=== PATIENT | male | born 1970 | race Caucasian/White ===

== ENCOUNTER 2018-07-14 09:39 | Emergency (ER) | payer BC ==
[2018-07-14 09:54] VITALS: BP 147/101
--- NOTE | 2018-07-14 09:54 | UC ---
Cardiac HPI - HPI Summary HPI Summary: Patient is of 48 year old gentleman , who present today to the urgent care with chest pain or palpitations since morning today. he reports that he had some had cold-like symptoms 3 days ago, which got slightly better but was noticing heaviness in his chest which got worse today morning. Denies any fever, chills, cough . Denies any abdominal pain , nausea or vomiting , diarrhea or constipation. - History of Current Complaint Stated Complaint: HEART PALPATIONS CHEST TIGHTNESS Time Seen by Provider: 07/14/18 09:41 Hx Obtained From: Patient - Allergy/Home Medications Allergies/Adverse Reactions: Allergies Allergy/AdvReac Type Severity Reaction Status Date / Time No Known Allergies Allergy Verified 07/14/18 09:53 Home Medications: Home Medications Acetaminophen [Tylenol Extra Strength] 1,000 mg PO ONCE PRN 07/14/18 [History Confirmed 07/14/18] D-Methorphan/PE/Acetaminophen [Tylenol Cold M-S Daytime Liq] 1 dose PO ONCE PRN 07/14/18 [History Confirmed 07/14/18] PMH/Surg Hx/FS Hx/Imm Hx - Additional Past Medical History Additional PMH: no significant past medical history Previously Healthy: Yes - Surgical History Surgical History: Yes Surgery Procedure, Year, and Place: fatty lipoma REMOVED LEFT LOWER ABDOMEN - Social History Alcohol Use: Rare Substance Use Type: None Smoking Status (MU): Never Smoked Tobacco Review of Systems All Other Systems Reviewed And Are Negative: Yes Constitutional: Positive: Negative Skin: Positive: Negative Eyes: Positive: Negative ENT: Positive: Negative Respiratory: Positive: Shortness Of Breath. Negative: Cough Cardiovascular: Positive: Palpitations, Chest Pain Gastrointestinal: Positive: Negative Genitourinary: Positive: Negative Motor: Positive: Negative Neurovascular: Positive: Negative Musculoskeletal: Positive: Negative Neurological: Positive: Negative Psychological: Positive: Negative Is Patient Immunocompromised?: No Physical Exam - Summary Physical Exam Summary: Physical Exam: Const: Appears well. No signs of apparent distress present. Alert and oriented x 3. Musculo: Walks with a normal gait. Head/Face: Atraumatic, normocephalic on inspection. Eyes: EOMI and PERRLA in both eyes. Conjunctivae clear. No discharge noted ENT: Hearing normal, TM normal appearing bilaterally, No pharyngeal erythema or exudates . Uvula is midline. No cervical or submandibular lymphadenopathy noted. Respiratory: Respirations are unlabored. Lungs clear to auscultation bilaterally, no wheezing , rhonchi or rales noted . CVS: slightly irregular intermittently, S1S2 normal , no murmurs identified. Extremities: Peripheral circulation is grossly normal. Pulses 2+ Abdomen : Soft non tender , nondistended , Bowel sounds present . No guarding , rebound tenderness or rigidity noted. Skin: No lesions or rash located on the upper extremities or on the lower extremities. Neuro: Cranial nerves II to XII intact, motor and sensory intact. DTR Intact bilaterally. Mood is normal. Affect is normal. Triage Information Reviewed: Yes Vital Signs Reviewed: Yes Diagnostics - EKG Cardiac Rate: Bradycardia Cardiac Rhythm: Sinus: Normal Ectopy: PVCs ST Segment: Non-Specific Summary of EKG Findings: sinus bradycardia, PVCs, left ventricular hypertrophy, minimal ST elevation at V2 and slight in V3. This could represent of the repolarization abnormalities due to LVH. - Assessment/Plan Course Of Treatment: Patient needs additional testing, thus ER transfer advised and patient agrees. But he does not want to go Via ambulance and will drive himself to ER. I believe that the patient might be having a cardiac ischemia. I discussed this at length with him - Risks include . He verbalizes understanding of his potential diagnosis and risks. Patient signed out AMA. Report called to the ER provider( Franchesca) [facility], advised provider of the history, physical examination, and duration of illness and so far and the need for definitive management. vitals stable at the time of discharge. - Clinical Impression Provider Diagnosis: Heart palpitations, Left ventricular hypertrophy by electrocardiogram, ACS ( acute coronary syndrome) Discharge - Sign-Out/Discharge Documenting (check all that apply): Patient Departure All imaging exams completed and their final reports reviewed: No Studies - Discharge Plan Condition: Stable Disposition: AGAINST MEDICAL ADVICE Referrals: Davey Fowler DO [Primary Care Provider] - Additional Instructions: Patient needs additional testing, thus ER transfer advised and patient agrees. But he does not want to go Via ambulance and will drive himself to ER. He signed off AMA. Report called to the ER provider( Franchesca) [facility], advised provider of the history, physical examination, and duration of illness and so far and the need for definitive management. - Billing Disposition and Condition Condition: STABLE Disposition: Against Medical Advice
== END 2018-07-14 10:10 | disposition left against medical advice (07) ==
LOC: UCEAST 09:39
DX: I24.9 Acute ischemic heart disease, unspecified (principal); R00.2 Palpitations; I51.7 Cardiomegaly; R94.31 Abnormal electrocardiogram [ECG] [EKG]; Z53.21 Procedure and treatment not carried out due to patient leaving prior to being seen by health care provider
CPT/HCPCS: 93005; 99212; G0463

== ENCOUNTER → 2018-07-14 10:27 | Emergency (ER) | payer BC ==
--- NOTE | 2018-07-14 12:46 | ED ---
HPI Chest Pain - HPI Summary HPI Summary: This patient is a 48 year old M presenting to ED with a chief complaint of chest discomfort and palpitations since 07/09/18. The CC is described as starting as a burning feeling in his jaw and teeth on 07/11/18 and now pressure on the L side of his chest. The patient rates the pain 5/10 in severity. Symptoms aggravated by lying down. Symptoms alleviated by nothing. Patient exercises 3-4 times a week and does not feel pain when he is active. He last exercised on 07/08/18. Patient is a non-smoker and has alcohol occasionally. Denies PMHx of HTN and DM. Pertinent FHx includes his grandfather passed from CAD at 80 yo. - History of Current Complaint Chief Complaint: EDChestPainROMI Time Seen by Provider: 07/14/18 12:32 Hx Obtained From: Patient Onset/Duration: Started Weeks Ago, Still Present Timing: Intermittent Initial Severity: Moderate Current Severity: Moderate Pain Intensity: 5 Pain Scale Used: 0-10 Numeric Chest Pain Location: Discrete at: - L chest, started in his jaw and teeth Character: Burning, Pressure/Squeezing Aggravating Factor(s): Position - lying down Alleviating Factor(s): Nothing Associated Signs and Symptoms: Positive: Chest Pain - Allergy/Home Medications Allergies/Adverse Reactions: Allergies Allergy/AdvReac Type Severity Reaction Status Date / Time No Known Allergies Allergy Verified 07/14/18 09:53 PMH/Surg Hx/FS Hx/Imm Hx Endocrine/Hematology History: Denies: Hx Diabetes Cardiovascular History: Reports: Hx Hypertension - diet changes working Denies: Hx Pacemaker/ICD History: Denies: Hx Renal Disease Sensory History: Denies: Hx Hearing Aid Psychiatric History: Denies: Hx Panic Disorder - Surgical History Surgery Procedure, Year, and Place: fatty lipoma REMOVED LEFT LOWER ABDOMEN Infectious Disease History: No Infectious Disease History: Denies: Traveled Outside the [place] in Last 30 Days - Family History Known Family History: Positive: Other Family History: grandfather - CAD passed at age 80 - Social History Alcohol Use: Rare Substance Use Type: Reports: None Smoking Status (MU): Never Smoked Tobacco Review of Systems Negative: Fever Positive: Other - pain started as burning in jaw and teeth Positive: Palpitations, Chest Pain - L side of his chest, pressure All Other Systems Reviewed And Are Negative: Yes Physical Exam - Summary Physical Exam Summary: Appearance: Well appearing, no pain distress Skin: warm, dry, reflects adequate perfusion Head/face: normal Eyes: EOMI, MARK ENT: normal Neck: supple, non-tender Respiratory: CTA, breath sounds present Cardiovascular: RRR, pulses symmetrical Abdomen: non-tender, soft Musculoskeletal: normal, strength/ROM intact Neuro: normal, sensory motor intact, A&Ox3 Triage Information Reviewed: Yes Vital Signs On Initial Exam: Initial Vitals Temp Pulse Resp BP Pulse Ox 97.7 F 59 14 144/98 99 07/14/18 10:31 07/14/18 10:31 07/14/18 10:31 07/14/18 10:31 07/14/18 10:31 Vital Signs Reviewed: Yes Diagnostics - Vital Signs Vital Signs Temp Pulse Resp BP Pulse Ox 07/14/18 10:31 97.7 F 59 14 144/98 99 - Laboratory Result Diagrams: 07/14/18 12:59 07/14/18 12:59 Lab Statement: Any lab studies that have been ordered have been reviewed, and results considered in the medical decision making process. - Radiology CXR Radiology Interpretation Completed By: Radiologist Summary of Radiographic Findings: No evidence for acute intrathoracic disease. Dr. Theodore has reviewed this radiology report. - EKG 1042 Cardiac Rate: NL - 85 BPM EKG Rhythm: Sinus Rhythm Ectopy: PVCs Re-Evaluation - Re-Evaluation First Eval Re-Evaluation Time: 13:55 Comment: Discussed results and plan to test for a second troponin in 2 hours. Second Eval Re-Evaluation Time: 17:02 Comment: Discussed results of second troponin and plan for discharge. Patient understands and agrees with this plan. Chest Pain Course/Dx - Course Assessment/Plan: This patient is a 48 year old M presenting to ED with a chief complaint of chest discomfort and palpitations since 07/09/18. Blood work obtained. CXR reveals no evidence for acute intrathoracic disease. EKG reveals NSR at 85 BPM and PVCs. This patient will be discharged with dx of atypical CP. Patient understands and agrees with this plan. - Chest Pain Differential Diagnosis/HQI/PQRI: Other: - atypical CP - Diagnoses Provider Diagnoses: Atypical chest pain Discharge - Sign-Out/Discharge Documenting (check all that apply): Patient Departure - discharge Patient Received Moderate/Deep Sedation with Procedure: No - Discharge Plan Condition: Stable Disposition: HOME Patient Education Materials: Chest Pain (ED) Referrals: Davey Fowler DO [Primary Care Provider] - 3 Days Additional Instructions: RETURN TO THE EMERGENCY DEPARTMENT FOR CHANGING OR WORSENING SYMPTOMS. - Attestation Statements Document Initiated by Scribe: Yes Documenting Scribe: Reinier Mc Provider For Whom Scribe is Documenting (Include Credential): Ramakrishna Theodore MD Scribe Attestation: IReinier, scribed for Ramakrishna Theodore MD on 07/14/18 at 1701. Status of Scribe Document: Ready
[2018-07-14 13:07] LABS: ABS Basophils 0 10^3/ul (0-0.2); ABS Eosinophils 0.1 10^3/ul (0-0.6); ABS Lymphocytes 1.6 10^3/ul (1.0-4.8); ABS Monocytes 0.5 10^3/ul (0-0.8); ABS Neutrophils 7.7 10^3/ul (1.5-7.7); ABS Nucleated RBC 0 10^3/ul; Eosinophil % 0.5 %; Hematocrit 46 % (36-46); Hemoglobin 15.8 g/dL (14.0-18.0); Lymphocyte % 16.5 %; Mean Corpuscular HGB Conc 34 g/dL (31-36); Mean Corpuscular Hemoglobin 31 pg (27-31); Mean Corpuscular Volume 90 fL (80-94); Mean Platelet Volume 8.9 fL (7.4-10.4); Nucleated Red Blood Cells % 0; Platelet Count 224 10^3/uL (150-450); Red Cell Distribution Width 13 % (10.5-15); White Blood Count 9.9 10^3/uL (3.5-10.8)
[2018-07-14 13:18] LABS: Activated Partial Thrombo Time 30.9 seconds (26.0-36.3); INR 0.89 (0.77-1.02)
[2018-07-14 13:24] LABS: Albumin 4.4 g/dL (3.2-5.2); Albumin/Globulin Ratio 1.8 (1-3); BUN/Creatinine Ratio 12.2 (8-20); Calcium 9.4 mg/dL (8.6-10.3); EGFR African American 98.8 (>60); EGFR Non-African American 81.6 (>60); Globulin 2.5 g/dL (2-4); Potassium 4.3 mmol/L (3.5-5.0); Total Bilirubin 0.5 mg/dL (0.2-1.0); Total Protein 6.9 g/dL (6.4-8.9)
[2018-07-14 13:25] LABS: Troponin I 0.01 ng/mL (<0.04)
[2018-07-14 14:15] LABS: TSH (Thyroid Stimulating Horm) 2.15 mcIU/mL (0.34-5.60)
[2018-07-14 19:07] VITALS: BP 128/88
== END | disposition home or self-care (01) ==
LOC: ED 10:27
DX: R07.89 Other chest pain (principal); I49.3 Ventricular premature depolarization; R94.31 Abnormal electrocardiogram [ECG] [EKG]; E11.9 Type 2 diabetes mellitus without complications
CPT/HCPCS: 36415; 71045; 80053; 83605; 83880; 84443; 84484; 85025; 85610; 85730; 93005; 99283